=== PATIENT | female | born 1975 | race Asian ===

== ENCOUNTER 2019-08-29 15:14 | Inpatient (IN) | payer OTHER ==
[~2019-08-29] VITALS: Ht 170.2 cm; Wt 61.7 kg
[2019-08-29 15:37] VITALS: Ht 170.2 cm; Wt 61.7 kg
[2019-08-29 16:01] LABS: BASOPHIL % 0.5 % (0-2); PLATELET COUNT 238 x10^3mcL (130-400); RED CELL DISTRIBUTION WIDTH 13.8 % (11.5-14.5)
[2019-08-29 16:28] LABS: UA SPECIFIC GRAVITY 1.025 (1.005-1.035); microscopic required? YES; urine erythrocyte NEGATIVE (NEGATIVE)
[2019-08-29 16:30] LABS: ALBUMIN 3.6 g/dL (3.4-5.0); CARBON DIOXIDE 28.7 mmol/L (21-32); CHLORIDE SERUM 101 mmol/L (98-107); CREATININE SERUM 0.7 mg/dL (0.6-1.0); GFR1 > 60 mL/min; GLUCOSE SERUM 111 mg/dL (74-106); POTASSIUM SERUM 3.3 mmol/L (3.5-5.1); SODIUM SERUM 138 mmol/L (136-145); TOTAL PROTEIN, SERUM 8.5 g/dL (6.4-8.2)
[2019-08-29 16:31] LABS: ALKALINE PHOSPHATASE 109 U/L (46-116); ALT/SGPT 245 U/L (14-59); AST/SGOT 385 U/L (15-37); BILIRUBIN TOTAL 2.29 mg/dL (0.20-1.00); CALCIUM 8.9 mg/dL (8.5-10.1); LIPASE 87 IU/L (73-393)
[2019-08-29] MEDS ORDERED: PENTASA250 MG PO (18:19)
[2019-08-29 20:18] VITALS: BP 118/69
[2019-08-30 06:10] VITALS: BP 105/68
[2019-08-30 07:04] LABS: BASOPHIL % 0.9 % (0-2); PLATELET COUNT 205 x10^3mcL (130-400); RED CELL DISTRIBUTION WIDTH 14.3 % (11.5-14.5)
[2019-08-30 07:14] LABS: MAGNESIUM 1.8 mg/dL (1.8-2.4); PHOSPHOROUS 3.2 mg/dL (2.5-4.9)
[2019-08-30 07:15] LABS: CHLORIDE SERUM 105 mmol/L (98-107); POTASSIUM SERUM 3.7 mmol/L (3.5-5.1); SODIUM SERUM 138 mmol/L (136-145)
[2019-08-30 07:21] LABS: CARBON DIOXIDE 26.2 mmol/L (21-32); GLUCOSE SERUM 80 mg/dL (74-106)
[2019-08-30 07:23] LABS: ALKALINE PHOSPHATASE 104 U/L (46-116); ALT/SGPT 258 U/L (14-59); AST/SGOT 155 U/L (15-37); BILIRUBIN TOTAL 2.1 mg/dL (0.20-1.00); CALCIUM 8.5 mg/dL (8.5-10.1); CREATININE SERUM 0.8 mg/dL (0.6-1.0); GFR1 > 60 mL/min; TOTAL PROTEIN, SERUM 7.6 g/dL (6.4-8.2)
[2019-08-30 08:34] VITALS: BP 119/82
[2019-08-30 12:43] VITALS: BP 111/68
[2019-08-30 15:22] VITALS: BP 104/69
[2019-08-30 19:24] VITALS: BP 117/69
[2019-08-31 04:33] VITALS: BP 108/64
[2019-08-31 06:42] LABS: BASOPHIL % 0.4 % (0-2); PLATELET COUNT 180 x10^3mcL (130-400); RED CELL DISTRIBUTION WIDTH 13.9 % (11.5-14.5)
[2019-08-31 06:55] LABS: CALCIUM 8.1 mg/dL (8.5-10.1); CHLORIDE SERUM 106 mmol/L (98-107); CREATININE SERUM 0.7 mg/dL (0.6-1.0); GFR1 > 60 mL/min; GLUCOSE SERUM 78 mg/dL (74-106); POTASSIUM SERUM 3.9 mmol/L (3.5-5.1); SODIUM SERUM 140 mmol/L (136-145)
[2019-08-31 07:07] LABS: ALBUMIN 2.6 g/dL (3.4-5.0); ALKALINE PHOSPHATASE 83 U/L (46-116); ALT/SGPT 140 U/L (14-59); AST/SGOT 41 U/L (15-37); BILIRUBIN TOTAL 1.14 mg/dL (0.20-1.00); TOTAL PROTEIN, SERUM 6.4 g/dL (6.4-8.2)
[2019-08-31 07:11] LABS: MAGNESIUM 1.7 mg/dL (1.8-2.4); PHOSPHOROUS 3.1 mg/dL (2.5-4.9)
[2019-08-31 07:58] VITALS: BP 112/67
[2019-08-31] MEDS ORDERED: ACETAMINOPHEN-H1 TA1 PO (09:10)
[2019-08-31 11:47] VITALS: BP 123/64
[2019-08-31 13:08] VITALS: BP 123/64
== END 2019-08-31 14:08 | disposition home or self-care (01) | DRG 417 ==
LOC: ED 15:14 → MU 18:21
PROVIDERS: Emergency Medicine; Student in an Organized Health Care Education/Training Program; Surgery; ADMIT Internal Medicine
PROC: BF10YZZ Fluoroscopy of Bile Ducts using Other Contrast (ICD-10-PCS; 2019-08-30)
PROC: 0FT44ZZ Resection of Gallbladder, Percutaneous Endoscopic Approach (ICD-10-PCS; principal; 2019-08-30 10:00)
DX: K80.00 Calculus of gallbladder with acute cholecystitis without obstruction (principal); N17.0 Acute kidney failure with tubular necrosis; K50.90 Crohn's disease, unspecified, without complications; R80.9 Proteinuria, unspecified; E87.6 Hypokalemia; Z68.21 Body mass index [BMI] 21.0-21.9, adult
CPT/HCPCS: 94150; C1887; G0378; J1885; J2001; J2175; J2250; J2405; J2543; J2704; J3010; J3490; J7030; J7120; Q0092; Q9967